=== PATIENT | male | born 1975 | race African-American/Black ===

== ENCOUNTER 2016-10-31 07:51 | Emergency (ER) | payer SELFPAY ==
[~2016-10-31] VITALS: Ht 180.3 cm; Wt 75.0 kg
[~2016-10-31 07:51] MED LIST: VENTAER INH; Z.0.NO CURRENT MEDS; ZITH250T PO
[2016-10-31 07:52] VITALS: BP 130/77; PULSE 84; RESP 16; TEMP 98.1; O2SAT 99
--- NOTE | 2016-10-31 08:29 | PD ---
HPI . Bilateral ankle pain and swelling Chief Complaint: Edema Time Seen by Provider: 08:24 Travel History International Travel<30 days: No Contact w/Intl Traveler<30days: No Traveled to known affect area: No History of Present Illness HPI Patient presents with the acute onset of bilateral ankle pain and swelling. He states he was fine yesterday but awakened with a swelling this morning. He describes sharp, shooting pain which she rates as 9/10. Pain is exacerbated by walking. He has not taken anything for it prior to presentation. He denies injury. He denies any associated symptoms such as shortness of breath. [facility] Past Medical History Diminished Hearing: No Social History Alcohol Use: No Tobacco Use: Yes Substance Use: No Allergies-Medications (Allergen,Severity, Reaction): Coded Allergies: No Known Allergies (Verified , 01/27/09) Reported Meds & Prescriptions Reported Meds & Active Scripts Active Ventolin Hfa (Albuterol Sulfate) 18 Gm Aero 2 Puff INH Q4HPRN * SHAKE WELL BEFORE USE * Zithromax Z-Rodriguez (Azithromycin) 250 Mg Tab 250 Mg PO DIRECTED 5 Days 500 MG (2 TABLETS) PO ON DAY 1, THEN 250 MG (1 TABLET) PO ON DAYS 2 TO 5. Reported No Current Meds (Miscellaneous Medication) Misc Review of Systems Except as stated in HPI: all other systems reviewed are Neg General / Constitutional: No: Fever, Chills Cardiovascular: No: Chest Pain or Discomfort Respiratory: No: Shortness of Breath Gastrointestinal: No: Nausea, Vomiting Musculoskeletal: Positive: Arthralgias, Edema Physical Exam Narrative GENERAL: Awake and alert and in no acute distress. SKIN: Warm and dry. HEAD: Atraumatic. Normocephalic. EYES: Pupils equal and round. Extraocular movements are intact. NECK: Trachea midline. Neck supple. CARDIOVASCULAR: Regular rate and rhythm. Heart sounds are normal. RESPIRATORY: No accessory muscle use. Lungs are clear with good air movement throughout. MUSCULOSKELETAL: No obvious deformities. Swelling of both ankles, left worse than right. Tender to palpation both ankles. He has no pitting edema. NEUROLOGICAL: Awake and alert. No obvious cranial nerve deficits. Motor grossly within normal limits. Normal speech. PSYCHIATRIC: Appropriate mood and affect; insight and judgment normal. Data Data Last Documented VS Vital Signs Date Time Temp Pulse Resp B/P Pulse Ox O2 Delivery O2 Flow Rate FiO2 10/31/16 07:52 98.1 84 16 130/77 99 Orders Ankle, Complete ([id number]) (10/31/16 08:24) Ankle, Complete ([id number]) (10/31/16 08:24) Ketorolac Inj (Toradol Inj) (10/31/16 08:30) MDM Medical Decision Making Medical Screen Exam Complete: Yes Emergency Medical Condition: Yes Differential Diagnosis Differential diagnosis of joint pain includes but is not limited to arthritis, gout, sprain/strain, fracture, dislocation Narrative Course This patient presents complaining with pain and swelling of both feet. On exam , he has arthritic changes in his ankles. I have ordered x-rays of both ankles. I will treat him here with Toradol. Last Impressions Ankle X-Ray 10/31/16823 Signed Impressions: Service Date/Time: Monday, October 31, 2016 08:37 - CONCLUSION: Lateral ankle soft tissue swelling. No fracture is seen. Keshawn Watts MD Ankle X-Ray 10/31/16823 Signed Impressions: Service Date/Time: Monday, October 31, 2016 08:42 - CONCLUSION: Soft tissue swelling around the ankle and dorsal aspect of the foot. No acute osseous abnormality is identified. Keshawn Watts MD The x-rays were independently viewed by me. The patient will be discharged home on prednisone and Ultram. Diagnosis Primary Impression: Arthralgia of ankle Qualified Code: M25.571 - Arthralgia of both ankles Patient Instructions: Arthralgia (ED), General Instructions Med/Other Pt SpecificInfo: Prescription(s) given Scripts Tramadol 50 Mg Tab50 Mg PO Q4H PRN (PAIN) #12 TAB Ref 0 Prov:Mavis Bolton MD 10/31/16 Prednisone (48) 10 mg tab Dose Pack 10 Mg Dspk10 Mg PO DIRECTED #1 DSPK Ref 0 Prov:Mavis Bolton MD 10/31/16 Disposition: 01 DISCHARGE HOME Condition: Stable Mavis Bolton MD October 31, 2016 08:29
[2016-10-31] MEDS ORDERED: KETOROLAC TROMETHAMINE 60 MG/2 ML (IM) VIAL IM ONE (08:30)
--- NOTE | 2016-10-31 08:50 | RADRPT ---
EXAM DATE/TIME: 10/31/2016 08:37 [facility] COMPARISON: No previous studies available for comparison. INDICATIONS : Foot swelling since waking up this morning. MEDICAL HISTORY : None. SURGICAL HISTORY : None. ENCOUNTER: Initial ACUITY: 1 day PAIN SCORE: 0/10 LOCATION: Right ankle FINDINGS: Three views of the right ankle demonstrate no fracture or dislocation. Ankle mortise is intact. [employer] alization is within normal limits and there is no significant arthropathy. No radiopaque foreign body is identified. There is lateral ankle soft tissue swelling. CONCLUSION: Lateral ankle soft tissue swelling. No fracture is seen. Keshawn Watts MD on October 31, 2016 at 8:47 Board Certified Radiologist. This report was verified electronically.
--- NOTE | 2016-10-31 08:51 | RADRPT ---
EXAM DATE/TIME: 10/31/2016 08:42 [facility] COMPARISON: No previous studies available for comparison. INDICATIONS : Foot swelling since waking up this morning. MEDICAL HISTORY : None. SURGICAL HISTORY : None. ENCOUNTER: Initial ACUITY: 1 day PAIN SCORE: 0/10 LOCATION: Left ankle FINDINGS: 3 views the left ankle demonstrate no fracture or dislocation. Ankle mortise is intact. Mineralizatio n is within normal limits and there is no significant arthropathy. No radiopaque foreign body is iden tified. There is lateral ankle and dorsal foot soft tissue swelling. CONCLUSION: Soft tissue swelling around the ankle and dorsal aspect of the foot. No acute osseous abnormality is identified. Keshawn Watts MD on October 31, 2016 at 8:48 Board Certified Radiologist. This report was verified electronically.
[2016-10-31] MEDS ORDERED: TRAM50TA PO (09:02)
[2016-10-31] MEDS ORDERED: PRED10PA2 PO (09:02)
== END 2016-10-31 09:40 | disposition home or self-care (01) ==
LOC: NEPE 07:51
DX: M25.571 Pain in right ankle and joints of right foot (principal); M25.572 Pain in left ankle and joints of left foot; R22.43 Localized swelling, mass and lump, lower limb, bilateral; Z72.0 Tobacco use
CPT/HCPCS: 73610; 96372; 99284; J1885